=== PATIENT | male | born 1985 | race Caucasian/White ===

== ENCOUNTER 2016-10-08 15:12 | Emergency (ER) | payer SELFPAY ==
--- NOTE | 2016-10-08 16:04 | ED ---
General Adult HPI - General Chief complaint: Extremity Problem,Nontraumatic Stated complaint: ankle swelling/pain Time Seen by Provider: 10/08/16 15:56 Source: patient, RN notes reviewed, old records reviewed Mode of arrival: ambulatory Limitations: no limitations - History of Present Illness Initial comments: This is a 31-year-old male EL with left foot pain. Patient has about a week's onset of left anterior forefoot pain and lateral foot pain. Decreased range of motion with eversion. Patient systems are worse when he is walking. No injury noted. No swelling. Patient has no pain in his calf and no risk factors for DVT - Related Data Allergies Allergy/AdvReac Type Severity Reaction Status Date / Time No Known Allergies Allergy Verified 10/08/16 15:33 Review of Systems ROS Statement: Those systems with pertinent positive or pertinent negative responses have been documented in the HPI. ROS Other: All systems not noted in ROS Statement are negative. Past Medical History Past Medical History: No Reported History History of Any Multi-Drug Resistant Organisms: None Reported Past Surgical History: No Surgical Hx Reported Past Psychological History: No Psychological Hx Reported Smoking Status: Never smoker Past Alcohol Use History: None Reported Past Drug Use History: None Reported General Exam Limitations: no limitations General appearance: alert, in no apparent distress Head exam: Present: atraumatic, normocephalic, normal inspection Eye exam: Present: normal appearance, PERRL, EOMI. Absent: scleral icterus, conjunctival injection, periorbital swelling ENT exam: Present: normal exam, mucous membranes moist Neck exam: Present: normal inspection. Absent: tenderness, meningismus, lymphadenopathy Respiratory exam: Present: normal lung sounds bilaterally. Absent: respiratory distress, wheezes, rales, rhonchi, stridor Cardiovascular Exam: Present: regular rate, normal rhythm, normal heart sounds. Absent: systolic murmur, diastolic murmur, rubs, gallop, clicks GI/Abdominal exam: Present: soft, normal bowel sounds. Absent: distended, tenderness, guarding, rebound, rigid Extremities exam: Present: normal inspection, full ROM, normal capillary refill , other (Left foot shows swelling along the left anterior talofibular ligament, boggy). Absent: tenderness, pedal edema, joint swelling, calf tenderness Back exam: Present: normal inspection Neurological exam: Present: alert, oriented X3, CN II-XII intact Psychiatric exam: Present: normal affect, normal mood Skin exam: Present: warm, dry, intact, normal color. Absent: rash Course Vital Signs 10/08/16 15:31 Temperature 98.5 F Pulse Rate 94 Respiratory 20 Rate Blood Pressure 181/92 O2 Sat by Pulse 99 Oximetry - Reevaluation(s) Reevaluation #1: 10/08/16 16:03 Patient is able to ambulate Medical Decision Making - Medical Decision Making 31 now here for evaluation, patient is a very evaluation of ankle pain, diagnosed ankle sprain x-ray negative will follow up with orthopedics - Radiology Data Radiology results: report reviewed (X-ray left foot is negative for acute disease), image reviewed Disposition Clinical Impression: Sprain of left foot Disposition: HOME SELF-CARE Condition: Good Instructions: Foot Sprain (ED) Referrals: Escobar Johnson MD [STAFF PHYSICIAN] - 1-2 days
--- NOTE | 2016-10-08 16:27 | XR ---
EXAMINATION TYPE: XR foot complete LT DATE OF EXAM: 10/08/2016 4:15 PM COMPARISON: NONE HISTORY: Pain and swelling TECHNIQUE: 3 views FINDINGS: There is an Achilles calcaneal spur. I see no fracture nor dislocation. Metatarsals are int act. IMPRESSION: Calcaneal spurring. No fracture seen.
[2016-10-08 17:01] VITALS: BP 148/83; PULSE 81; RESP 18; TEMP 97.9
== END 2016-10-08 17:01 | disposition home or self-care (01) ==
LOC: EC 15:12
DX: S93.602A Unspecified sprain of left foot, initial encounter (principal); M77.32 Calcaneal spur, left foot; S93.409A Sprain of unspecified ligament of unspecified ankle, initial encounter; X58.XXXA Exposure to other specified factors, initial encounter
CPT/HCPCS: 99284